=== PATIENT | female | born 1970 | race Caucasian/White ===

== ENCOUNTER → 2020-06-06 15:14 | Outpatient (BNVA) | payer OTHER, SELFPAY | PROVIDERS: Family Provider Internal Medicine; Visit Provider Surgery | DX: Z20.828 Contact with and (suspected) exposure to other viral communicable diseases (principal); Z12.11 Encounter for screening for malignant neoplasm of colon; Z01.812 Encounter for preprocedural laboratory examination | CPT/HCPCS: 87635 ==

== ENCOUNTER 2020-06-11 08:23 | Day surgery (SDC) | payer OTHER, SELFPAY ==
[2020-06-07 12:31] VITALS: BMI 24.9
[2020-06-11 08:49] VITALS: BP 140/94; PULSE 96; RESP 18; TEMP 36.4; O2SAT 100
--- NOTE | 2020-06-11 08:55 | ANES.PREANE2 ---
Pre-Anesthetic Assessment Pre-Anesthetic Assessment: Height/Weight: Height 1.63 m Weight 65.771 kg Temp Pulse Resp BP Pulse Ox 97.5 F L 96 18 140/94 100 06/11/20 08:49 06/11/20 08:49 06/11/20 08:49 06/11/20 08:49 06/11/20 08:49 Preop Diagnosis: screening colonoscopy Proposed Procedure: Operation Date: 06/11/20 09:30 Proposed Procedures p Colonoscopy 01617 Z12.11(Not Applicable) - Neil Escudero MD Last intake: Intake Last Liquid Date 06/10/20 Last Liquid Time 21:00 Last Solid Date 06/09/20 Last Solid Time 20:00 Social: Social History: No alcohol and No tobacco Exam: Pre-Anes Outpt Exam: alert, oriented x 3, clear to auscultation bilaterally and regular rate & rhythm Airway: Submandibular: WNL Cervical ROM: WNL MP: 1 Additional comments: teeht ok History/ROS: No significant history except as noted Pulmonary: Pulmonary: None reported CV/HEM: CV/HEM: None reported : : None reported Hepatic: Hepatic: None reported GI: GI: GERD Musc/skel: Musc/skel: None reported Neuropsych: Neuropsych: Anxiety Anesthetic Plan: ASA status: 2 Anesthesia: Anesthesia Evaluation and MAC Risk of > 500 ml blood loss (7ml/kg in children): No Data Anesthesia Cardiac Studies: No Data to Display
[2020-06-11] MEDS: sodium chloride 0.9% 1,000 ML 30 ML IV (09:06)
--- NOTE | 2020-06-11 09:22 | P.HP_ITS ---
Same Day Surgery H&P Indication for Procedure/HPI DATE OF PROCEDURE: June 11, 2020 CHIEF COMPLAINT/INDICATIONFOR SURGICAL PROCEDURE: screening colonoscopy PREOP DIAGNOSIS: screening colonoscopy PLANNED PROCEDRUE: Operation Date: 06/11/20 09:30 Proposed Procedures p Colonoscopy 30771 Z12.11(Not Applicable) - Neil Escudero MD Medications/Allergies* Home Medications Medication Instructions Recorded Confirmed Type Lactobacillus acidophilus 1 cap PO DAILY 04/30/20 06/11/20 History [place] 3 CoQ10 1 tab PO DAILY 04/30/20 06/11/20 History alprazolam 0.25 mg tablet 0.25 mg PO TID PRN 04/30/20 06/11/20 History bupropion HCl 150 mg 24 hr tablet, 150 mg PO QAM 04/30/20 06/11/20 History extended release estradiol and testosterone pellet 1 applic IMPLANT ONCE 04/30/20 06/11/20 History thyroid (pork) 30 mg tablet 30 mg PO DAILY 04/30/20 06/11/20 History cetirizine [Zyrtec] 10 mg PO DAILY 06/07/20 06/11/20 History omeprazole 20 mg PO DAILY 06/07/20 06/11/20 History vitamin A-vitamin D3 1 cap PO DAILY 06/11/20 06/11/20 History Allergies/Adverse Reactions Allergy/AdvReac Type Severity Reaction Status Date / Time No Known Allergies Allergy Verified 06/11/20 09:05 Current Medications: Generic Name Dose Route Start Last Admin Trade Name Freq PRN Reason Stop Dose Admin Sodium Chloride 1,000 mls @ 30 mls/hr 06/11/20 08:45 06/11/20 09:06 Sodium Chloride 0.9% IV 06/12/20 08:44 30 mls/hr .Q24H BERNA Administration Pertinent Exam Findings alert, oriented x 3 and regular rate & rhythm Recommendations Surgery/Procedure today Coding Level of Care Code Acute Industrial Order Clerk for Mari Grigsby
[2020-06-11 10:04] VITALS: BP 113/58; PULSE 75; RESP 16; TEMP 36.3; O2SAT 97
[2020-06-11 10:17] VITALS: BP 135/85; PULSE 78; RESP 18; TEMP 36.4; O2SAT 100
== END 2020-06-11 10:39 | disposition home or self-care (01) ==
PROVIDERS: Family Provider Internal Medicine; Visit Provider Surgery
PROC: 0DJD8ZZ Inspection of Lower Intestinal Tract, Via Natural or Artificial Opening Endoscopic (ICD-10-PCS; CPT 45378; principal; 2020-06-11 09:30)
DX: Z12.11 Encounter for screening for malignant neoplasm of colon (principal); K63.5 Polyp of colon; K21.9 Gastro-esophageal reflux disease without esophagitis; F41.9 Anxiety disorder, unspecified
CPT/HCPCS: 12345; 45380; 88305; J2704; J7030